=== PATIENT | female | born 2000 | race Caucasian/White ===

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

== ENCOUNTER → 2021-02-09 10:41 | Outpatient (CLI) | payer MEDICAID | END | disposition home or self-care (01) | LOC: D.RAD 10:41 | PROVIDERS: ATTEND Pediatrics | DX: K59.00 Constipation, unspecified (principal) ==

== ENCOUNTER → 2021-02-13 14:54 | Outpatient (CLI) | payer MEDICAID | END | disposition home or self-care (01) | LOC: D.RAD 14:54 | PROVIDERS: ATTEND Pediatrics | DX: K59.00 Constipation, unspecified (principal) ==

== ENCOUNTER → 2021-02-17 12:59 | Outpatient (CLI) | payer MEDICAID | END | disposition home or self-care (01) | LOC: D.RAD 12:59 | PROVIDERS: ATTEND Pediatrics | DX: K59.00 Constipation, unspecified (principal) ==